=== PATIENT | male | born 1955 | race Caucasian/White ===

== ENCOUNTER 2017-02-12 16:49 | Emergency (ER) | payer OTHER ==
[2017-02-12 16:59] VITALS: BP 146/88; PULSE 58; TEMP 97.6; BMI 32.3
[2017-02-12] MEDS ORDERED: MECLIZINE HCL 25 MG TABLET (FP) PO ONE (17:35)
--- NOTE | 2017-02-12 17:40 | PDOC ---
History of Present Illness - General Chief Complaint: Lightheaded Stated Complaint: FATIGUE Time Seen by Provider: 02/12/17 17:25 History Source: Patient - History of Present Illness Timing/Duration: intermittent Associated Symptoms: denies: chest pain, cough, diaphoresis, fever/chills, headaches, nausea/vomiting, shortness of breath, syncope, weakness Past History - Past Medical History Allergies/Adverse Reactions: Allergies Allergy/AdvReac Type Severity Reaction Status Date / Time Iodinated Contrast- Oral and Allergy Verified 12/21/15 02:11 IV Dye [Iodinated Contrast Media - IV Dye] Home Medications: Ambulatory Orders Simvastatin [Zocor -] 20 mg PO HS 07/25/14 Aspirin [ASA -] 81 mg PO DAILY 12/20/15 Meclizine HCl [Antivert -] 25 mg PO TID #21 tablet 02/12/17 Tamsulosin HCl [Flomax -] 0.4 mg PO DAILY 02/12/17 Diabetes: Yes Disorders: Yes (PROSTATE.) Hypercholesterolemia: Yes Suicide Attempt (Hx): No Other medical history: VERTIGO - Psycho/Social/Smoking Cessation Hx Anxiety: No Suicidal Ideation: No Smoking Status: No Smoking History: Never smoked Number of Cigarettes Smoked Daily: 0 Information on smoking cessation initiated: No Hx Alcohol Use: No Drug/Substance Use Hx: No Substance Use Type: None Review of Systems - Review of Systems Constitutional: No: Chills, Fever Respiratory: No: Shortness of Breath Cardiac (ROS): No: Chest Pain, Palpitations, Syncope Neurological: Yes: Dizziness. No: Headache *Physical Exam - Vital Signs Last Vital Signs Temp Pulse Resp BP Pulse Ox 97.6 F 58 L 20 146/88 99 02/12/17 16:56 02/12/17 16:56 02/12/17 16:56 02/12/17 16:56 02/12/17 17:22 - Physical Exam General Appearance: Yes: Appropriately Dressed. No: Apparent Distress HEENT: positive: Normal ENT Inspection, Normal Voice. negative: Scleral Icterus (R), Scleral Icterus (L) Neck: positive: Supple Respiratory/Chest: positive: Lungs Clear, Normal Breath Sounds. negative: Respiratory Distress Cardiovascular: positive: Regular Rate, S1, S2 Gastrointestinal/Abdominal: positive: Soft. negative: Tender Extremity: positive: Normal Inspection Integumentary: positive: Dry, Warm Neurologic: positive: Fully Oriented, Alert, Normal Mood/Affect, Motor Strength 5/5, Finger to Nose, Other (no nystagmus, Adonay intact, no ataxia, no drift). negative: Facial Droop, Sensory Deficit, Disoriented ED Treatment Course - LABORATORY CBC & Chemistry Diagram: 02/12/17 18:00 02/12/17 17:40 - RADIOLOGY Radiology Studies Ordered: Category Date Time Status HEAD CT WITHOUT CONTRAST [CT] Stat CT Scan 02/12/17 17:35 Ordered Medical Decision Making - Medical Decision Making 02/12/17 17:37 61 yo M, h/o HLD, NIDDM, BPH, vertigo p/w sensation of the room spinning this afternoon while at work, worse when changing position. States symptoms feel like prior episodes of vertigo. Currently does not have any meclizine at home. Denies headache, nausea, vomiting, visual changes, or focal weakness. No chest pain or shortness of breath See exam Recurrent vertigo Stable w/ no focal deficits Doubt central cause, m/l peripheral -meclizine/reassess -labs and CTH -dispo pending 02/12/17 17:54 CTH negative. Pt reports feeling better w/ meclizine. Labs pending 02/12/17 18:40 Signed out to CARMEN Deras pending labs 02/12/17 18:42 *DC/Admit/Observation/Transfer Diagnosis at time of Disposition: Vertigo - Discharge Dispostion Condition at time of disposition: Improved - Prescriptions Prescriptions: Meclizine HCl [Antivert -] 25 mg PO TID #21 tablet - Referrals Referrals: Rom Meier MD [Primary Care Provider] - - Patient Instructions Printed Discharge Instructions: Vertigo Additional Instructions: [place] meclizine segn sea necesario y realice un seguimiento con el Dr. Pederson de la neurologa en 1-2 semanas Terry un seguimiento con sierra PMD Print Language: SCOTTISH
[2017-02-12] MEDS ORDERED: MECLIZINE HCL 25 MG TABLET (FP) ONE (17:49)
[2017-02-12 18:34] LABS: BASOPHIL 0.2 % (0-2.0); EOSINOPHIL 0.3 % (0-4.5); MCH 31.3 pg (25.7-33.7); MCHC 34.3 g/dl (32.0-35.9); MEAN CELL VOLUME 91.3 fl (80-96); NEUTROPHILS 84.1 % (42.8-82.8); PLATELET COUNT 181 K/MM3 (134-434); RDW 13.4 % (11.9-15.9)
[2017-02-12 19:00] LABS: ALBUMIN 4.2 g/dl (3.4-5.0); ANION GAP 5 (8-16); BILIRUBIN,TOTAL 0.5 mg/dL (0.2-1.0); CALCIUM 8.5 mg/dL (8.5-10.1); CO2 29 mmol/L (21-32); CREATININE 0.9 mg/dL (0.7-1.3); GLUCOSE,RANDOM 161 mg/dL (74-106); SGOT/AST 16 U/L (15-37); SGPT/ALT 27 U/L (12-78)
[2017-02-12 19:04] LABS: ALK PHOS 58 U/L (45-117); CPK 217 IU/L (39-308); TOT PROT 7.2 g/dl (6.4-8.2); TROPONIN I < 0.02 ng/ml (0.00-0.05)
[2017-02-12 19:11] LABS: URINE APPEARANCE CLEAR; URINE BILIRUBIN NEGATIVE (NEGATIVE); URINE BLOOD NEGATIVE (NEGATIVE); URINE COLOR STRAW; URINE GLUCOSE (UA) NEGATIVE (NEGATIVE); URINE KETONE NEGATIVE (NEGATIVE); URINE LEUK ESTERASE NEGATIVE (NEGATIVE); URINE NITRITE NEGATIVE (NEGATIVE); URINE PROTEIN NEGATIVE (NEGATIVE); URINE UROBILINOGEN NEGATIVE mg/dL (0.2-1.0)
--- NOTE | 2017-02-13 13:14 | EKG ---
Test Reason : Blood Pressure : / mmHG Vent. Rate : 051 BPM Atrial Rate : 051 BPM P-R Int : 140 ms QRS Dur : 088 ms QT Int : 436 ms P-R-T Axes : 049 -13 014 degrees QTc Int : 401 ms SINUS BRADYCARDIA SEPTAL INFARCT , AGE UNDETERMINED ABNORMAL ECG WHEN COMPARED WITH ECG OF 21-DEC-2015 12:42, SEPTAL INFARCT IS NOW PRESENT Confirmed by OTF HAMEED MD ([id number]) on 02/13/2017 1:14:16 PM Referred By: Confirmed By:OTF HAMEED MD
== END 2017-02-12 19:35 | disposition home or self-care (01) ==
LOC: JER 16:49
DX: H81.399 Other peripheral vertigo, unspecified ear (principal); E11.9 Type 2 diabetes mellitus without complications; Z79.84 Long term (current) use of oral hypoglycemic drugs; E78.00 Pure hypercholesterolemia, unspecified; N40.0 Benign prostatic hyperplasia without lower urinary tract symptoms
CPT/HCPCS: 36415; 70450-TC; 80053; 81003; 82553; 84484; 85025; 93005; 93010; 99284-25

== ENCOUNTER 2019-01-29 16:53 | Emergency (ER) | payer OTHER ==
--- NOTE | 2019-01-29 17:08 | PDOC ---
Rapid Medical Evaluation Time Seen by Provider: 01/29/19 17:05 Medical Evaluation: Allergies Allergy/AdvReac Type Severity Reaction Status Date / Time Iodinated Contrast Media Allergy Verified 12/21/15 02:11 [Iodinated Contrast Media - IV Dye] 01/29/19 17:06 I have performed a brief in-person evaluation of this patient. The patient presents with a chief complaint of:R hand injury Pertinent physical exam findings:stable I have ordered the following:XR The patient will proceed to the ED for further evaluation. Discharge Disposition - Diagnosis Hand injury Qualifiers: Encounter type: initial encounter Laterality: right Qualified Code(s): S69.91XA - Unspecified injury of right wrist, hand and finger(s), initial encounter - Referrals - Patient Instructions - Post Discharge Activity
[2019-01-29 17:09] VITALS: BP 121/67; PULSE 62; TEMP 98.2; BMI 31.9
--- NOTE | 2019-01-29 18:14 | PDOC ---
History of Present Illness - General Chief Complaint: Injury Stated Complaint: SWOLLEN RT MID FINGER Time Seen by Provider: 01/29/19 17:05 History Source: Patient Exam Limitations: No Limitations - History of Present Illness Initial Comments: 01/29/19 18:14 HISTORY OF PRESENT ILLNESS: This is 63-year-old male past medical history of NIDDM presents emergency department for evaluation of pain to the index and middle fingers of the right hand status post trip and fall. Patient reports he put handout to break his fall began to experience pain on the index and middle fingers. No recent travel or sick contacts. PAST MEDICAL HISTORY: Denies past medical history SURGICAL HISTORY: Denies ALLERGIES: No known drug allergies REVIEW OF SYSTEMS General/Constitutional: Denies fever or chills. Denies weakness, weight change. HEENT: Denies change in vision. Denies ear pain or discharge. Denies sore throat. Cardiovascular: Denies chest pain or shortness of breath. Respiratory: Denies cough, wheezing, or hemoptysis. Gastrointestinal: Denies nausea, vomiting, diarrhea or constipation. Denies rectal bleeding. Genitourinary: Denies dysuria, frequency, or change in urination. Musculoskeletal: see HPI Skin and breasts: Denies rash or easy bruising. Neurologic: Denies headache, vertigo, loss of consciousness, or loss of sensation. Psychiatric: Denies depression or anxiety. Endocrine: Denies increased thirst. Denies abnormal weight change. Hematologic/Lymphatic: Denies anemia, easy bleeding, or history of blood clots. Allergic/Immunologic: Denies hives or skin allergy. Denies latex allergy. PHYSICAL EXAM General Appearance: Well-appearing, appropriately dressed. No apparent distress , no intoxication. Respiratory/Chest: Lungs CTAB. No shortness of breath, chest tenderness, respiratory distress, accessory muscle use. No crackles, rales, rhonchi, stridor , wheezing, dullness Cardiovascular: RRR. S1, S2. No JVD, murmur, bradycardia, tachycardia. Vascular Pulses: Dorsalis-Pedis (R): 2+, Dorsalis-Pedis (L): 2+ Musculoskeletal/Extremities: Decreased flexion with index and middle finger of the right hand secondary to pain. Ecchymosis presents on the volar aspects of the PIP of the middle finger and the DIP of the index finger. No bony deformity , crepitus or step-off is present. Full sensation present distal to the injury. Capillary refill less than 2 seconds. Integumentary: Appropriate color, dry, warm. No cyanosis, erythema, jaundice or rash Neurologic: process supervisor II-XII intact. Fully oriented, alert. Appropriate mood/affect. Motor strength 5/5. No appreciable EOM palsy, facial droop or sensory deficit. Past History - Past Medical History Allergies/Adverse Reactions: Allergies Allergy/AdvReac Type Severity Reaction Status Date / Time Iodinated Contrast Media Allergy Verified 01/29/19 17:06 [Iodinated Contrast Media - IV Dye] Home Medications: Ambulatory Orders Simvastatin [Zocor -] 20 mg PO HS 07/25/14 Aspirin [ASA -] 81 mg PO DAILY 12/20/15 Meclizine HCl [Antivert -] 25 mg PO TID #21 tablet 02/12/17 Tamsulosin HCl [Flomax -] 0.4 mg PO DAILY 02/12/17 COPD: No Diabetes: Yes Disorders: Yes (PROSTATE.) Hypercholesterolemia: Yes - Immunization History Immunization Up to Date: Yes - Suicide/Smoking/Psychosocial Hx Smoking Status: No Smoking History: Never smoked Number of Cigarettes Smoked Daily: 0 Information on smoking cessation initiated: No Hx Alcohol Use: No Drug/Substance Use Hx: No Substance Use Type: None *Physical Exam - Vital Signs Last Vital Signs Temp Pulse Resp BP Pulse Ox 98.2 F 62 17 121/67 97 01/29/19 17:06 01/29/19 17:06 01/29/19 17:06 01/29/19 17:06 01/29/19 17:06 Medical Decision Making - Medical Decision Making 01/29/19 18:09 A/P: 63-year-old male with right first and second finger pain status post trip and fall X-rays as read by me: No acute fractures or dislocations present. Ecchymosis present to PIP of the right middle finger on the volar aspect as well as the DIP of the right index finger on the volar aspect Likely inter-phalanx contusion. I will discharge the patient home to follow-up with his primary doctor as needed. I discussed the physical exam findings, ancillary test results and final diagnoses with the patient. I answered all of the patient's questions. The patient was satisfied with the care received and felt comfortable with the discharge plan and treatment plan. The patient will call their primary care physician within 24 hours to arrange follow-up and will return to the Emergency Department with any new, persistent or worsening symptoms. Portions of this note have been documented using voice recognition software. As a result, errors may occur in the home economist process. Effort has been made to correct all grammatical and home economist error, but some may have been missed. 01/29/19 18:16 01/30/19 11:14 *DC/Admit/Observation/Transfer Diagnosis at time of Disposition: Contusion, fingers Qualifiers: Encounter type: initial encounter Damage to nail status: without damage Laterality: right - Discharge Dispostion Disposition: HOME Condition at time of disposition: Stable Decision to Admit order: No - Referrals Referrals: Rom Meier MD [Primary Care Provider] - - Patient Instructions Additional Instructions: Keep her fingers taped together until pain resolves. Follow-up with your primary doctor for reevaluation. Return to emergency department for new or worsening symptoms Thank you very much for choosing us to provide your emergent health care needs. Mantenga giorgio dedos pegados hasta que se resuelva el dolor. Terry un seguimiento con sierra mdico de cabecera para la reevaluacin. Regrese al departamento de emergencias por sntomas nuevos o que empeoran Muchas lexi por elegirnos para satisfacer giorgio necesidades de atencin mdica de emergencia. - Post Discharge Activity Forms/Work/School Notes: Back to Work
== END 2019-01-29 18:17 | disposition home or self-care (01) ==
LOC: JERFT 16:53
DX: S69.91XA Unspecified injury of right wrist, hand and finger(s), initial encounter (principal); W18.30XA Fall on same level, unspecified, initial encounter; Y93.89 Activity, other specified; Y92.89 Other specified places as the place of occurrence of the external cause; E11.9 Type 2 diabetes mellitus without complications; E78.00 Pure hypercholesterolemia, unspecified
CPT/HCPCS: 73130-TC-RT-FY; 99281-25

== ENCOUNTER 2020-03-07 23:38 | Inpatient (IN) | payer OTHER ==
[2020-03-08] MEDS ORDERED: ACETAMINOPHEN 1000 MG/100 ML VIAL (NON FORMULARY) IVPB ONE (00:44)
[2020-03-08] MEDS ORDERED: ACETAMINOPHEN INJECTION 100 ML IVPB ONE (01:39)
[2020-03-08 02:10] LABS: BASO % 0.2 % (0-2.0); EOS % 0.3 % (0-4.5); HEMOGLOBIN 13.6 GM/dL (11.7-16.9); LYMPH % 8.8 % (8-40); MCH 32.1 pg (25.7-33.7); MEAN CELL VOLUME 94.2 fl (80-96); MEAN PLT VOLUME 8.8 fl (7.5-11.1); MONO % 6.1 % (3.8-10.2); NEUT % 84.6 % (42.8-82.8); PLATELET COUNT 175 K/MM3 (134-434); RBC 4.25 M/mm3 (4.00-5.60); RDW 13.2 % (11.9-15.9); WHITE BLOOD COUNT 13.6 K/mm3 (4.0-10.0)
[2020-03-08 02:21] LABS: INR 0.92 (0.83-1.09); PROTHROMBIN TIME (PATIENT) 10.9 SEC (9.7-13.0)
[2020-03-08 02:50] LABS: ALBUMIN 3.8 g/dl (3.4-5.0); ALK PHOS 55 U/L (45-117); ANION GAP 9 MMOL/L (8-16); BILIRUBIN,TOTAL 0.5 mg/dL (0.2-1); BLOOD UREA NITROGEN 21.6 mg/dL (7-18); CALCIUM 8.4 mg/dL (8.5-10.1); CHLORIDE 103 mmol/L (98-107); CO2 24 mmol/L (21-32); CREATININE 0.9 mg/dL (0.55-1.3); GLUCOSE,RANDOM 226 mg/dL (74-106); N-TERMINAL BNP 40.9 pg/ml (5-125); POTASSIUM 4.1 mmol/L (3.5-5.1); SGOT/AST 14 U/L (15-37); SGPT/ALT 25 U/L (13-61); SODIUM 136 mmol/L (136-145); TOT PROT 6.5 g/dl (6.4-8.2)
[2020-03-08 05:46] LABS: URINE APPEARANCE CLEAR; URINE BILIRUBIN NEGATIVE (NEGATIVE); URINE COLOR YELLOW; URINE GLUCOSE (UA) 1+ (NEGATIVE); URINE KETONE NEGATIVE (NEGATIVE); URINE LEUK ESTERASE NEGATIVE (NEGATIVE); URINE NITRITE NEGATIVE (NEGATIVE); URINE PROTEIN NEGATIVE (NEGATIVE); URINE UROBILINOGEN 0.2 mg/dL (0.2-1.0)
[2020-03-08] MEDS ORDERED: MECLIZINE HCL 25 MG TABLET (FP) ONE ×2 (06:13→14:34)
[2020-03-08] MEDS: MECLIZINE HCL 25 MG TABLET (FP) PO SCH ×3 (06:20→21:12)
[2020-03-08] MEDS: SODIUM CHLORIDE 1,000 ML IV SCH (06:20)
[2020-03-08] MEDS ORDERED: TAMSULOSIN HCL 0.4 MG CAP ONE (10:28)
[2020-03-08] MEDS ORDERED: ASPIRIN COATED 81 MG TABLET.EC ONE (10:28)
[2020-03-08] MEDS: TAMSULOSIN HCL 0.4 MG CAP PO SCH (10:30)
[2020-03-08] MEDS ORDERED: VANCOMYCIN 1 GM in D5W (PRE-DOCKED) 1,000 MG/250 ML IVPB ONE (10:30)
[2020-03-08] MEDS: INSULIN SLIDING SCALE (NOVOLOG) 1 VIAL SQ SCH ×4 (10:31→21:15)
[2020-03-08] MEDS ORDERED: VANCOMYCIN 1 GRAM (PRE-DOCKED) 1,000 MG/250 ML BAG IVPB ONE (10:34)
[2020-03-08] MEDS: ASPIRIN 81 MG CHEWABLE TABLETS PO SCH (11:06)
[2020-03-08] MEDS ORDERED: PNEUMOC 13-VAL CONJ-DIP CRM/PF 0.5 ML DISP.SYRIN IM ONE (11:47)
[2020-03-08] MEDS ORDERED: FLU VACCINE (FLULAVAL) PF 60 MCG/0.5 ML SYRINGE 2020-2021 IM ONE (12:00)
[2020-03-08 16:01] VITALS: BMI 30.1
[2020-03-08] MEDS: ATORVASTATIN CA 10 MG TABLET (FP) PO SCH (21:12)
[2020-03-08] MEDS ORDERED: PATIENT'S OWN MEDICATION (NON-FORMULARY) (Simvastatin 20 MG) PO SCH (22:00)
[2020-03-09] MEDS: SODIUM CHLORIDE 1,000 ML IV SCH (04:00)
[2020-03-09] MEDS: MECLIZINE HCL 25 MG TABLET (FP) PO SCH ×3 (06:39→21:14)
[2020-03-09] MEDS: INSULIN SLIDING SCALE (NOVOLOG) 1 VIAL SQ SCH ×4 (06:39→21:18)
[2020-03-09 07:36] LABS: HEMOGLOBIN 13.5 GM/dL (11.7-16.9); MCH 31.8 pg (25.7-33.7); MCHC 33.6 g/dl (32.0-35.9); MEAN CELL VOLUME 94.5 fl (80-96); MEAN PLT VOLUME 8.6 fl (7.5-11.1); PLATELET COUNT 184 K/MM3 (134-434); RBC 4.24 M/mm3 (4.00-5.60); RDW 13.3 % (11.9-15.9); WHITE BLOOD COUNT 6.4 K/mm3 (4.0-10.0)
[2020-03-09 08:19] LABS: ALBUMIN 3.8 g/dl (3.4-5.0); BILIRUBIN,TOTAL 0.6 mg/dL (0.2-1); BLOOD UREA NITROGEN 17.2 mg/dL (7-18); CALCIUM 8.4 mg/dL (8.5-10.1); CREATININE 0.8 mg/dL (0.55-1.3); PHOSPHOROUS 3.3 mg/dL (2.5-4.9); POTASSIUM 4.5 mmol/L (3.5-5.1); TOT PROT 6.3 g/dl (6.4-8.2)
[2020-03-09] MEDS: ASPIRIN 81 MG CHEWABLE TABLETS PO SCH (09:47)
[2020-03-09] MEDS: TAMSULOSIN HCL 0.4 MG CAP PO SCH (09:48)
[2020-03-09] MEDS ORDERED: FLU VACCINE (FLULAVAL) PF 60 MCG/0.5 ML SYRINGE 2020-2021 IM ONE (12:00)
[2020-03-09] MEDS ORDERED: PNEUMOCOCCAL 23 VACCINE 0.5 ML VIAL IM ONE (12:00)
[2020-03-09] MEDS: LISINOPRIL 5 MG TABLET PO SCH (13:41)
[2020-03-09] MEDS: ATORVASTATIN CA 10 MG TABLET (FP) PO SCH (21:14)
[2020-03-10] MEDS: SODIUM CHLORIDE 1,000 ML IV SCH ×2 (02:45→05:33)
[2020-03-10] MEDS: MECLIZINE HCL 25 MG TABLET (FP) PO SCH (05:34)
[2020-03-10] MEDS: INSULIN SLIDING SCALE (NOVOLOG) 1 VIAL SQ SCH ×2 (06:04→11:13)
[2020-03-10 09:14] VITALS: BP 132/82; PULSE 63; TEMP 98.3
[2020-03-10] MEDS: ASPIRIN 81 MG CHEWABLE TABLETS PO SCH (09:20)
[2020-03-10] MEDS: LISINOPRIL 5 MG TABLET PO SCH (09:20)
[2020-03-10] MEDS: TAMSULOSIN HCL 0.4 MG CAP PO SCH (09:20)
== END 2020-03-10 11:50 | disposition home or self-care (01) | DRG 204 ==
LOC: JER 23:38 → JERBED 03-08 04:45 → J4W 03-08 15:15
PROVIDERS: ADMIT Hospitalist; ATTEND Internal Medicine
DX: R55 Syncope and collapse (principal); R42 Dizziness and giddiness; N40.0 Benign prostatic hyperplasia without lower urinary tract symptoms; D72.829 Elevated white blood cell count, unspecified; E78.5 Hyperlipidemia, unspecified; I10 Essential (primary) hypertension; E11.9 Type 2 diabetes mellitus without complications; E87.2 Acidosis; E66.9 Obesity, unspecified; Z68.30 Body mass index [BMI] 30.0-30.9, adult
CPT/HCPCS: 36415; 70450-TC; 71045-TC-FY; 72125-TC; 80048; 80053; 80061; 81003; 82550; 82947; 82962; 83036; 83605; 83721; 83880; 84100; 84443; 84484; 85025; 85027; 85610; 87040; 87086; 90732; 93005; 93010; 93306-TC; 93880-TC; 99285-25; C9803; G0008; G0009; J0131; Q2036; U0003

== ENCOUNTER 2021-04-01 00:39 | Observation (INO) | payer OTHER ==
[2021-04-01 02:43] LABS: BASO % 0.4 % (0-2.0); EOS % 0.7 % (0-4.5); HEMATOCRIT 37.4 % (35.4-49); HEMOGLOBIN 12.9 GM/dL (11.7-16.9); LYMPH % 14.4 % (8-40); MCH 31.8 pg (25.7-33.7); MCHC 34.4 g/dl (32.0-35.9); MEAN CELL VOLUME 92.4 fl (80-96); MEAN PLT VOLUME 7.7 fl (7.5-11.1); MONO % 5.3 % (3.8-10.2); NEUT % 79.2 % (42.8-82.8); PLATELET COUNT 212 10^3/uL (134-434); RBC 4.05 M/mm3 (4.00-5.60); RDW 13.8 % (11.9-15.9); WHITE BLOOD COUNT 10.3 K/mm3 (4.0-10.0)
[2021-04-01 03:02] LABS: CHLORIDE 108 mmol/L (98-107); SODIUM 140 mmol/L (136-145)
[2021-04-01 03:04] LABS: ALBUMIN 3.4 g/dl (3.4-5.0); ANION GAP 7 MMOL/L (8-16); CALCIUM 8.2 mg/dL (8.5-10.1); CO2 25 mmol/L (21-32); MAGNESIUM 2.1 mg/dL (1.8-2.4)
[2021-04-01 03:05] LABS: GLUCOSE,RANDOM 219 mg/dL (74-106)
[2021-04-01 03:07] LABS: PHOSPHOROUS 3.1 mg/dL (2.5-4.9); SGOT/AST 12 U/L (15-37); SGPT/ALT 22 U/L (13-61)
[2021-04-01 03:09] LABS: BILIRUBIN,TOTAL 0.3 mg/dL (0.2-1); TOT PROT 6.4 g/dl (6.4-8.2)
[2021-04-01 03:10] LABS: ALK PHOS 51 U/L (45-117)
[2021-04-01] MEDS ORDERED: SODIUM CHLORIDE 0.9% 500 ML INFUS.BAG IV ONE (04:19)
[2021-04-01] MEDS: INSULIN SLIDING SCALE (NOVOLOG) 1 VIAL SQ SCH ×3 (07:10→17:13)
[2021-04-01 07:31] LABS: HEMATOCRIT 37.8 % (35.4-49); HEMOGLOBIN 12.9 GM/dL (11.7-16.9); MCH 32.1 pg (25.7-33.7); MCHC 34.2 g/dl (32.0-35.9); MEAN CELL VOLUME 94.1 fl (80-96); PLATELET COUNT 223 10^3/uL (134-434); RBC 4.02 M/mm3 (4.00-5.60); RDW 13.8 % (11.9-15.9); WHITE BLOOD COUNT 7.9 K/mm3 (4.0-10.0)
[2021-04-01 07:44] LABS: CHLORIDE 111 mmol/L (98-107); SODIUM 141 mmol/L (136-145)
[2021-04-01 07:46] LABS: CALCIUM 8.3 mg/dL (8.5-10.1)
[2021-04-01 07:47] LABS: ANION GAP 3 MMOL/L (8-16); BLOOD UREA NITROGEN 18.2 mg/dL (7-18); CO2 28 mmol/L (21-32); GLUCOSE,RANDOM 151 mg/dL (74-106); MAGNESIUM 2.1 mg/dL (1.8-2.4)
[2021-04-01 07:50] LABS: CREATININE 0.9 mg/dL (0.55-1.3); PHOSPHOROUS 2.8 mg/dL (2.5-4.9)
[2021-04-01] MEDS ORDERED: TAMSULOSIN HCL 0.4 MG CAP ONE (08:04)
[2021-04-01] MEDS: TAMSULOSIN HCL 0.4 MG CAP PO SCH (08:35)
[2021-04-01 09:00] LABS: URINE APPEARANCE CLEAR; URINE BILIRUBIN NEGATIVE (NEGATIVE); URINE COLOR YELLOW; URINE GLUCOSE (UA) TRACE (NEGATIVE); URINE KETONE NEGATIVE (NEGATIVE); URINE LEUK ESTERASE NEGATIVE (NEGATIVE); URINE NITRITE NEGATIVE (NEGATIVE); URINE PROTEIN NEGATIVE (NEGATIVE); URINE UROBILINOGEN 0.2 mg/dL (0.2-1.0)
[2021-04-01 09:15] LABS: COCAINE, UR NEGATIVE (NEGATIVE); METHADONE, UR NEGATIVE (NEGATIVE); OPIATES, URI NEGATIVE (NEGATIVE); PHENCYCLIDINE,URINE NEGATIVE (NEGATIVE); URINE AMPHETAMINES NEGATIVE (NEGATIVE); URINE BARBITURATES NEGATIVE (NEGATIVE); URINE BENZODIAZEPINES NEGATIVE (NEGATIVE)
[2021-04-01] MEDS: ENOXAPARIN NA (PORCINE) 40 MG/0.4 ML DISP.SYRIN SQ SCH (10:30)
[2021-04-01] MEDS: ASPIRIN 81 MG CHEWABLE TABLETS PO SCH (10:30)
[2021-04-01] MEDS ORDERED: ENOXAPARIN NA (PORCINE) 40 MG/0.4 ML DISP.SYRIN SQ ONE (10:50)
[2021-04-01] MEDS ORDERED: ASPIRIN 81 MG CHEWABLE TABLETS ONE (10:51)
[2021-04-01] MEDS ORDERED: ATORVASTATIN CA 10 MG TABLET (FP) ONE (22:34)
[2021-04-01] MEDS: ATORVASTATIN CA 10 MG TABLET (FP) PO SCH (22:46)
[2021-04-02 03:25] VITALS: BMI 28.8
[2021-04-02] MEDS: INSULIN SLIDING SCALE (NOVOLOG) 1 VIAL SQ SCH ×3 (06:02→21:20)
[2021-04-02] MEDS: ASPIRIN 81 MG CHEWABLE TABLETS PO SCH (10:05)
[2021-04-02] MEDS: TAMSULOSIN HCL 0.4 MG CAP PO SCH (10:05)
[2021-04-02] MEDS: ENOXAPARIN NA (PORCINE) 40 MG/0.4 ML DISP.SYRIN SQ SCH (10:06)
[2021-04-02] MEDS: ATORVASTATIN CA 10 MG TABLET (FP) PO SCH (21:04)
[2021-04-03] MEDS: INSULIN SLIDING SCALE (NOVOLOG) 1 VIAL SQ SCH ×5 (06:01→17:02)
[2021-04-03] MEDS: TAMSULOSIN HCL 0.4 MG CAP PO SCH (09:33)
[2021-04-03] MEDS: ENOXAPARIN NA (PORCINE) 40 MG/0.4 ML DISP.SYRIN SQ SCH (09:33)
[2021-04-03] MEDS: ASPIRIN 81 MG CHEWABLE TABLETS PO SCH (09:33)
[2021-04-03 09:55] LABS: CHOLESTEROL 108 mg/dL (50-200); TRIGLYCERIDES 137 mg/dL (0-150)
[2021-04-03 09:56] LABS: LDL CHOLESTEROL (ONLY SJRH) 46 mg/dL (5-100)
[2021-04-03 09:58] LABS: HDL CHOLESTEROL 46 mg/dL (40-60)
[2021-04-03 18:53] VITALS: BP 128/79; PULSE 55; TEMP 98.4
== END 2021-04-03 19:43 | disposition home or self-care (01) ==
LOC: JER 00:39 → JERBED 04:20 → J4W 04-02 02:43
PROVIDERS: ATTEND Internal Medicine
PROC: 3E023GC Introduction of Other Therapeutic Substance into Muscle, Percutaneous Approach (ICD-10-PCS; principal; 2021-04-01)
PROC: 3E0337Z Introduction of Electrolytic and Water Balance Substance into Peripheral Vein, Percutaneous Approach (ICD-10-PCS; 2021-04-01)
DX: E86.0 Dehydration (principal); E78.5 Hyperlipidemia, unspecified; R55 Syncope and collapse; I10 Essential (primary) hypertension; E11.9 Type 2 diabetes mellitus without complications; E78.00 Pure hypercholesterolemia, unspecified; Z91.041 Radiographic dye allergy status; N40.0 Benign prostatic hyperplasia without lower urinary tract symptoms
CPT/HCPCS: 36415; 70450-TC; 71046-TC-FY; 80048; 80053; 80061; 80307; 81003; 82550; 82962; 83036; 83735; 84100; 84443; 84484; 85025; 85027; 93005; 93010; 93880-TC; 95816; 96372; 99285-25; C9803; G0378; U0003; U0005

== ENCOUNTER 2022-01-15 18:44 | Emergency (ER) | payer OTHER ==
[2022-01-15 18:54] VITALS: TEMP 97.8; BMI 28.5
[2022-01-15] MEDS ORDERED: DIPHTH,PERTUSS(ACELL),TET 0.5 ML DISP.SYRIN IM ONE ×2 (20:17→20:35)
[2022-01-15 20:47] VITALS: BP 141/78; PULSE 56; RESP 20
== END 2022-01-15 20:52 | disposition home or self-care (01) ==
LOC: JERFT 18:44
PROC: 0HQGXZZ Repair Left Hand Skin, External Approach (ICD-10-PCS; principal; 2022-01-15)
PROC: 3E0234Z Introduction of Serum, Toxoid and Vaccine into Muscle, Percutaneous Approach (ICD-10-PCS; 2022-01-15)
DX: S61.412A Laceration without foreign body of left hand, initial encounter (principal)
CPT/HCPCS: 12001-25; 82962; 90471; 90715; 99283-25

== ENCOUNTER 2022-01-25 08:41 | Emergency (ER) | payer OTHER ==
[2022-01-25 09:07] VITALS: BP 135/72; PULSE 62; RESP 17; TEMP 97.9; BMI 28.7
== END 2022-01-25 10:13 | disposition home or self-care (01) ==
LOC: JERFT 08:41
DX: S61.412A Laceration without foreign body of left hand, initial encounter (principal); Y99.9 Unspecified external cause status; Z48.02 Encounter for removal of sutures
CPT/HCPCS: 99281-25

== ENCOUNTER 2022-01-29 08:16 | Emergency (ER) | payer OTHER ==
[2022-01-29 08:19] VITALS: BP 128/71; PULSE 69; RESP 18; TEMP 98.3; BMI 30.3
== END 2022-01-29 08:57 | disposition home or self-care (01) ==
LOC: JERFT 08:16
DX: Z48.02 Encounter for removal of sutures (principal)
CPT/HCPCS: 99281-25

== ENCOUNTER 2024-12-06 06:20 | Day surgery (SDC) | payer MEDICARE, OTHER ==
[2024-12-02 10:17] VITALS: BMI 30.3
[2024-12-06 06:46] VITALS: RESP 16
[2024-12-06] MEDS ORDERED: levoFLOXacin 500 MG IVPB 1,500 MG/300 ML BAG IVPB ONE (07:45)
[2024-12-06] MEDS ORDERED: MIDAZOLAM HCL 2 MG/2 ML SINGLE DOSE VIAL ONE (07:48)
[2024-12-06 08:21] VITALS: TEMP 98.4
[2024-12-06 09:00] VITALS: BP 118/70; PULSE 55
== END 2024-12-06 09:00 | disposition home or self-care (01) ==
LOC: JASU-SURG 06:20
PROVIDERS: ATTEND Urology
PROC: 0TF3XZZ Fragmentation in Right Kidney Pelvis, External Approach (ICD-10-PCS; principal; 2024-12-06 07:56)
DX: N20.0 Calculus of kidney (principal)
CPT/HCPCS: 82962